=== PATIENT | female | born 1985 | race Caucasian/White ===

== ENCOUNTER 2021-06-26 17:18 | Observation (INO) ==
[2021-06-26] MEDS ORDERED: Ondansetron 4 MG/2 ML VIAL IVP PRN (19:18)
[2021-06-26] MEDS ORDERED: Naloxone 0.4 MG/ML INJ IVP PRN (19:18)
[2021-06-26] MEDS: Acetaminophen 325 MG TABLET PO PRN (20:55)
[2021-06-26 22:29] LABS: Bacteria,Urine Moderate per hpf (None-Few); Bilirubin,Urine Negative (Negative); Blood,Urine Negative (Negative); Calcium Oxalate Crystals,Urine Present per hpf; Clarity,Urine Turbid (Clear); Color,Urine Yellow (Yellow); Glucose,Urine (UA) Normal (Normal); Ketones,Urine Negative (Negative); Leukocyte Esterase,Urine Trace (Negative); Mucus,Urine Many per lpf (None-Few); Nitrite,Urine Positive (Negative); Protein,Urine 30 mg/dL (Neg-Trace); RBC,Urine 0-3 per hpf (0-3); Specific Gravity,Urine 1.026 (1.010-1.025); Squamous Epithelial Cell,Urine Few per hpf (None-Few)
[2021-06-27] MEDS: Ketorolac 30 MG/ML VIAL IVP SCH ×2 (00:18→05:43)
[2021-06-27] MEDS: *HR* Buprenorphine HCl 2 MG SUBLINGUAL TABLET SL SCH ×3 (00:18→21:21)
[2021-06-27] MEDS: *HR* Heparin 5,000 UNIT/ML VIAL SQ SCH ×4 (00:25→21:22)
[2021-06-27 01:26] LABS: Hemoglobin 10.9 g/dL (11.5-15.4); Mean Corpuscular HGB Conc 32.1 g/dL (31.6-35.5); Mean Corpuscular Hemoglobin 28.5 pg (28.0-33.3); Mean Platelet Volume 9.2 fL (9.4-12.4); Platelet Count 549 K/mcL (140-400); Red Blood Count 3.82 M/mcL (3.82-4.97); Red Cell Distribution Width 13.8 % (11.5-14.5); White Blood Count 9.5 K/mcL (4.3-11.1)
[2021-06-27 01:43] LABS: BUN/Creatinine Ratio 31 (6-26); Blood Urea Nitrogen 12 mg/dL (6-20); Calcium 8.1 mg/dL (8.6-10.3); Carbon Dioxide 28 mEq/L (23-29); Chloride 102 mEq/L (98-107); Glucose 111 mg/dL (70-105); Osmolality,Calculated 280 (280-300); Potassium 2.9 mEq/L (3.5-5.1); Sodium 135 mEq/L (136-145); eGFR For African Americans > 60 (> 60); eGFR For Non-African Americans > 60 (> 60)
[2021-06-27] MEDS: Acetaminophen 325 MG TABLET PO PRN (04:00)
[2021-06-27] MEDS ORDERED: Potassium Chloride 40 MEQ, Lidocaine 1% 2 ML in 0.9 % Sodium Chloride 500 ML IVPB ONE (07:51)
[2021-06-27] MEDS ORDERED: *HR* LORazepam 2 MG/ML VIAL IVP ONE (11:44)
[2021-06-27] MEDS ORDERED: GADOBUTROL 30 MMOL/30 ML VIAL IVP ONE (13:25)
[2021-06-27] MEDS: Gabapentin 300 MG CAPSULE PO SCH ×2 (14:41→21:20)
[2021-06-27] MEDS: traZODone 50 MG TABLET PO SCH (21:21)
[2021-06-28 02:09] LABS: Basophils % 0.4 %; Eosinophils # 0.5 K/mcL (0.0-0.6); Eosinophils % 5.2 %; Hematocrit 35.3 % (35.3-44.9); Immature Granulocytes % 0.4 % (0-4); Lymphocytes # 2.8 K/mcL (0.6-4.6); Lymphocytes % 29.4 %; Mean Corpuscular HGB Conc 31.2 g/dL (31.6-35.5); Mean Corpuscular Hemoglobin 28.2 pg (28.0-33.3); Mean Corpuscular Volume 90.5 fL (83.0-100.0); Mean Platelet Volume 9.2 fL (9.4-12.4); Monocytes # 0.7 K/mcL (0.0-1.3); Monocytes % 7.7 %; Neutrophils # 5.4 K/mcL (1.6-8.9); Platelet Count 515 K/mcL (140-400); Red Cell Distribution Width 13.8 % (11.5-14.5); Segmented Neutrophils % 56.9 %; White Blood Count 9.4 K/mcL (4.3-11.1)
[2021-06-28 02:47] LABS: BUN/Creatinine Ratio 33 (6-26); Blood Urea Nitrogen 14 mg/dL (6-20); Carbon Dioxide 30 mEq/L (23-29); Chloride 101 mEq/L (98-107); Glucose 103 mg/dL (70-105); Osmolality,Calculated 279 (280-300); Potassium 4.1 mEq/L (3.5-5.1); Sodium 134 mEq/L (136-145); eGFR For African Americans > 60 (> 60); eGFR For Non-African Americans > 60 (> 60)
[2021-06-28] MEDS: *HR* Heparin 5,000 UNIT/ML VIAL SQ SCH ×3 (05:33→21:09)
[2021-06-28] MEDS: Levothyroxine 25 MCG TABLET PO SCH (05:33)
[2021-06-28] MEDS ORDERED: Ketorolac 30 MG/ML VIAL IVP ONE (05:46)
[2021-06-28] MEDS: Gabapentin 300 MG CAPSULE PO SCH ×3 (08:57→21:08)
[2021-06-28] MEDS: *HR* Buprenorphine HCl 2 MG SUBLINGUAL TABLET SL SCH ×2 (08:57→21:08)
[2021-06-28] MEDS ORDERED: Isovue-370 500 ML BOTTLE IVP ONE ×2 (09:09)
[2021-06-28] MEDS ORDERED: *HR* HYDROmorphone (PF) 1 MG/ML SYRINGE IVP ONE (09:34)
[2021-06-28] MEDS ORDERED: Piperacillin/Tazobactam 3.375 GM in 0.9 % Sodium Chloride Mini Bag 100 ML IVPB SCH (10:00)
[2021-06-28] MEDS ORDERED: Vancomycin 1,250 MG/262.5 ML IV.SOLN IVPB SCH (10:00)
[2021-06-28 10:15] LABS: Amphetamine Screen,Urine Positive ng/mL (Cutoff=1000); Barbiturate Screen,Urine Negative ng/mL (Cutoff=200); Benzodiazepines Screen,Urine Negative ng/mL (Cutoff=200); Cannabinoid Screen,Urine Positive ng/mL (Cutoff = 50); Cocaine Screen,Urine Negative ng/mL (Cutoff= 300); Opiate Screen,Urine Negative ng/mL (Cutoff=300); Phencyclidine Screen,Urine Negative ng/mL (Cutoff=25)
[2021-06-28] MEDS: *HR* OxyCODONE Immed Rel 5 MG TABLET PO PRN ×3 (11:12→21:09)
[2021-06-28] MEDS: Acetaminophen 325 MG TABLET PO PRN (14:00)
[2021-06-28] MEDS: traZODone 50 MG TABLET PO SCH (21:08)
[2021-06-29] MEDS: *HR* OxyCODONE Immed Rel 5 MG TABLET PO PRN ×6 (01:22→23:32)
[2021-06-29 03:36] LABS: BUN/Creatinine Ratio 25 (6-26); Blood Urea Nitrogen 9 mg/dL (6-20); Calcium 7.8 mg/dL (8.6-10.3); Carbon Dioxide 30 mEq/L (23-29); Chloride 103 mEq/L (98-107); Glucose 103 mg/dL (70-105); Osmolality,Calculated 279 (280-300); Sodium 135 mEq/L (136-145); eGFR For African Americans > 60 (> 60); eGFR For Non-African Americans > 60 (> 60)
[2021-06-29] MEDS: *HR* Heparin 5,000 UNIT/ML VIAL SQ SCH ×3 (05:56→20:38)
[2021-06-29] MEDS: Levothyroxine 25 MCG TABLET PO SCH (05:56)
[2021-06-29] MEDS: *HR* Buprenorphine HCl 2 MG SUBLINGUAL TABLET SL SCH ×2 (10:31→19:24)
[2021-06-29] MEDS: Gabapentin 300 MG CAPSULE PO SCH ×3 (10:31→19:25)
[2021-06-29] MEDS: traZODone 50 MG TABLET PO SCH (19:24)
[2021-06-30 03:08] LABS: BUN/Creatinine Ratio 23 (6-26); Blood Urea Nitrogen 9 mg/dL (6-20); Calcium 7.8 mg/dL (8.6-10.3); Carbon Dioxide 28 mEq/L (23-29); Chloride 101 mEq/L (98-107); Glucose 118 mg/dL (70-105); Osmolality,Calculated 278 (280-300); Potassium 3.3 mEq/L (3.5-5.1); Sodium 134 mEq/L (136-145); eGFR For African Americans > 60 (> 60); eGFR For Non-African Americans > 60 (> 60)
[2021-06-30 03:28] LABS: Lambda Qnt Free Light Chains 78.46 mg/L (5.71-26.30)
[2021-06-30] MEDS: *HR* OxyCODONE Immed Rel 5 MG TABLET PO PRN ×5 (04:43→21:34)
[2021-06-30] MEDS: *HR* Heparin 5,000 UNIT/ML VIAL SQ SCH ×3 (05:36→21:06)
[2021-06-30] MEDS: Levothyroxine 25 MCG TABLET PO SCH (05:36)
[2021-06-30] MEDS: Gabapentin 300 MG CAPSULE PO SCH ×3 (07:59→21:05)
[2021-06-30] MEDS: *HR* Buprenorphine HCl 2 MG SUBLINGUAL TABLET SL SCH ×2 (08:00→21:04)
[2021-06-30 09:56] LABS: Kappa Qnt Free Light Chains 113.8 mg/L (3.30-19.40)
[2021-06-30] MEDS: Acetaminophen 325 MG TABLET PO PRN (11:47)
[2021-06-30] MEDS: cephALEXin 500 MG CAPSULE PO SCH ×2 (13:08→21:04)
[2021-06-30] MEDS: traZODone 50 MG TABLET PO SCH (21:05)
[2021-07-01] MEDS: *HR* OxyCODONE Immed Rel 5 MG TABLET PO PRN ×5 (02:20→20:02)
[2021-07-01] MEDS: *HR* Heparin 5,000 UNIT/ML VIAL SQ SCH ×3 (05:02→22:09)
[2021-07-01] MEDS: Levothyroxine 25 MCG TABLET PO SCH (05:04)
[2021-07-01 05:41] LABS: BUN/Creatinine Ratio 24 (6-26); Blood Urea Nitrogen 9 mg/dL (6-20); Carbon Dioxide 28 mEq/L (23-29); Chloride 102 mEq/L (98-107); Glucose 101 mg/dL (70-105); Osmolality,Calculated 277 (280-300); Potassium 3.8 mEq/L (3.5-5.1); Sodium 134 mEq/L (136-145); eGFR For African Americans > 60 (> 60); eGFR For Non-African Americans > 60 (> 60)
[2021-07-01] MEDS: Gabapentin 300 MG CAPSULE PO SCH ×3 (08:32→20:00)
[2021-07-01] MEDS: cephALEXin 500 MG CAPSULE PO SCH ×2 (08:33→20:01)
[2021-07-01] MEDS: *HR* Buprenorphine HCl 2 MG SUBLINGUAL TABLET SL SCH ×2 (08:33→20:01)
[2021-07-01] MEDS: Acetaminophen 325 MG TABLET PO PRN (08:46)
[2021-07-01 11:00] LABS: Hematocrit 32.2 % (35.3-44.9); Hemoglobin 10.1 g/dL (11.5-15.4); Mean Corpuscular HGB Conc 31.4 g/dL (31.6-35.5); Mean Corpuscular Hemoglobin 27.9 pg (28.0-33.3); Mean Platelet Volume 9.1 fL (9.4-12.4); Platelet Count 477 K/mcL (140-400); Red Blood Count 3.62 M/mcL (3.82-4.97); Red Cell Distribution Width 13.6 % (11.5-14.5); White Blood Count 8.9 K/mcL (4.3-11.1)
[2021-07-01 14:07] LABS: Alpha 2 Globulin (PEP) 0.94 g/dL (0.48-1.05); Beta Globulin (PEP) 1.09 g/dL (0.48-1.10)
[2021-07-01] MEDS: traZODone 50 MG TABLET PO SCH (20:01)
[2021-07-02] MEDS: *HR* OxyCODONE Immed Rel 5 MG TABLET PO PRN ×4 (02:49→17:05)
[2021-07-02] MEDS: *HR* Heparin 5,000 UNIT/ML VIAL SQ SCH ×2 (06:09→14:05)
[2021-07-02] MEDS: Levothyroxine 25 MCG TABLET PO SCH (06:10)
[2021-07-02 07:47] VITALS: BP 105/71; PULSE 75; TEMP 98.4; O2SAT 96
[2021-07-02] MEDS: *HR* Buprenorphine HCl 2 MG SUBLINGUAL TABLET SL SCH (09:09)
[2021-07-02] MEDS: Gabapentin 300 MG CAPSULE PO SCH ×2 (09:13→17:06)
[2021-07-02] MEDS: cephALEXin 500 MG CAPSULE PO SCH (09:15)
[2021-07-02 11:32] LABS: IFE Reflexed NOT DONE
== END 2021-07-02 18:30 | disposition short-term general hospital (02) ==
LOC: EMEROOARM 17:18 → 3ANU 17:18 → SUATTDRO 23:14 → 3ANU 23:40
PROVIDERS: ADMIT Family Medicine; ATTEND Internal Medicine